=== PATIENT | female | born 1985 | race Hispanic/Latino ===

== ENCOUNTER 2017-04-18 04:20 | Emergency (ER) | payer OTHER ==
[2017-04-18 04:27] VITALS: RESP 16
[2017-04-18] MEDS ORDERED: Sodium Chloride 0.9% 1,000 ML IV STA (04:47)
--- NOTE | 2017-04-18 05:11 | ED PDOC ---
HPI: Abdomen Time Seen by Provider: 04/18/17 04:32 Chief Complaint (Nursing): Dizziness/Lightheaded Chief Complaint (Provider): Abdominal pain History Per: Patient History/Exam Limitations: no limitations Onset/Duration Of Symptoms: Days (04/18/17) Location Of Pain/Discomfort: Epigastric Associated Symptoms: Nausea, Vomiting (two episodesc), Diarrhea Additional Complaint(s): 32 y/o female with a past medical history of Yakov disease, hypothyroidism, and anxiety presents to the ED complaining of abdominal pain with associated symptoms of nausea, two episodes of vomiting and non-bloody diarrhea. Vomit was non-bilious and non-bloody. Reports of dizziness due to change in thyroid. PMD: Provider TBD Past Medical History Reviewed: Historical Data, Nursing Documentation, Vital Signs Vital Signs: Last Vital Signs Temp 97.9 F 04/18/17 04:25 Pulse 75 04/18/17 04:25 Resp 16 04/18/17 04:25 BP 135/95 H 04/18/17 04:25 Pulse Ox 97 04/18/17 05:27 - Medical History PMH: Anxiety, Hypothyroidism Denies: Seizures Other PMH: Yakov disease - Family History Family History: States: Unknown Family Hx - Social History Current smoker - smoking cessation education provided: No Alcohol: None Drugs: Denies - Home Medications Home Medications: Ambulatory Orders Medication Instructions Recorded Dextroamphetamine/Amphetamine 10 mg PO BID 04/07/15 [Adderall 10 mg Tablet] Escitalopram [Lexapro] 10 mg PO DAILY 04/07/15 Ethinyl Estradiol/Drospirenone 1 tab PO DAILY 04/07/15 [Lilian 3 mg-0.03 mg] Ondansetron ODT [Zofran ODT] 4 mg PO TID #21 odt 04/07/15 Bacitracin Ointment [Bacitracin] 1 applic TOP BID #1 tube 02/22/16 Naproxen [Naprosyn] 500 mg PO Q12 PRN #14 tablet 02/22/16 - Allergies Allergies/Adverse Reactions: Allergies Allergy/AdvReac Type Severity Reaction Status Date / Time No Known Allergies Allergy Verified 04/18/17 04:27 Review of Systems ROS Statement: Except As Marked, All Systems Reviewed And Found Negative Gastrointestinal: Positive for: Nausea, Vomiting (two episodes non-bilious and non-bloody), Abdominal Pain (epigastric), Diarrhea (non-bloody) Neurological: Positive for: Dizziness Physical Exam - Reviewed Nursing Documentation Reviewed: Yes Vital Signs Reviewed: Yes - Physical Exam Appears: Positive for: Well, Non-toxic, No Acute Distress Head Exam: Positive for: ATRAUMATIC, NORMAL INSPECTION, NORMOCEPHALIC Skin: Positive for: Normal Color, Warm, Dry Eye Exam: Positive for: EOMI, Normal appearance, PERRL ENT: Positive for: Normal ENT Inspection, Other (mucous membrane dry) Neck: Positive for: Normal, Painless ROM, Supple. Negative for: Decreased ROM, Limited ROM Cardiovascular/Chest: Positive for: Regular Rate, Rhythm. Negative for: Murmur Respiratory: Positive for: Normal Breath Sounds. Negative for: Decreased Breath Sounds, Accessory Muscle Use, Wheezing Gastrointestinal/Abdominal: Positive for: Bowel Sounds, Soft, Tenderness ( epigastric) Back: Positive for: Normal Inspection. Negative for: L CVA Tenderness, R CVA Tenderness Extremity: Positive for: Normal ROM. Negative for: Tenderness, Pedal Edema, Deformity Neurologic/Psych: Positive for: Alert, Oriented (x3), Gait - Laboratory Results Result Diagrams: 04/18/17 05:20 04/18/17 05:20 - ECG O2 Sat by Pulse Oximetry: 97 (RA) Pulse Ox Interpretation: Normal Medical Decision Making Medical Decision Making: Time: 04:46 Initial Impression: 32 y/o female with Abdominal pain, diarrhea, and vomiting Initial Plan: --EKG --Alcohol Serum --CMP --Lipase Stat --CBC --Ativan 2mg --Famotidine 20mg --Normale Saline 1000 mls/hr --Zofran 4mg --Urinalysis --Reevaluation Time: 07:00 Patient will be signed out to Dr. Gillespie pending CT and reevaluation. Documented by Kim Blackburn acting as a scribe for Tyshawn Wilcox MD. All medical record entries made by the Scribe were at my direction and personally dictated by me. I have reviewed the chart and agree that the record accurately reflects my personal performance of the history, physical exam, medical decision making, and the department course for this patient. I have also personally directed, reviewed, and agree with the discharge instructions and disposition. Disposition - Disposition Forms: [employer] (Telugu)
[2017-04-18 05:36] LABS: BASO # 0.1 K/uL (0.0-0.2); BASO % 1.5 % (0.0-2.0); EOS # 0.2 K/uL (0.0-0.7); EOS % 2.7 % (0.0-4.0); LYMPH # 2.1 K/uL (1.0-4.3); LYMPH % 25.9 % (20.0-40.0); MEAN CELL VOLUME 89.3 fl (81.0-99.0); MEAN CORPUSCULAR HEMOGLOBIN 30.2 pg (27.0-31.0); MEAN CORPUSCULAR HGB CONC 33.8 g/dL (33.0-37.0); MEAN PLATELET VOLUME 7.3 fl (7.2-11.7); MONO # 0.6 K/uL (0.0-0.8); MONO % 7.3 % (0.0-10.0); NEUT % 62.6 % (50.0-75.0); NRBC % 0.1 % (0.0-0.0); RBC 3.97 Mil/uL (3.80-5.20); RED CELL DISTRIBUTION WIDTH 13.3 % (11.5-14.5)
[2017-04-18 05:56] LABS: URINE BACTERIA RARE (<OCC); URINE BILIRUBIN NEGATIVE (NEGATIVE); URINE BLOOD MODERATE (NEGATIVE); URINE CLARITY CLEAR (Clear); URINE COLOR COLORLESS (YELLOW); URINE GLUCOSE (UA) NEG (Normal); URINE LEUKOCYTE ESTERASE NEG Leu/uL (Negative); URINE PROTEIN NEGATIVE (NEGATIVE); URINE UROBILINOGEN 0.2-1.0 mg/dL (0.2-1.0)
[2017-04-18] MEDS ORDERED: Sucralfate 1 gm/10 ml Oral Susp UD PO STA (06:38)
[2017-04-18 06:39] LABS: ALBUMIN 4.2 g/dL (3.5-5.0); ALT/SGPT 29 U/L (9-52); AST/SGOT 28 U/L (14-36); BLOOD UREA NITROGEN 12 mg/dl (7-17); CALCIUM 9.7 mg/dL (8.4-10.2); GFR AFRICAN-AMERICAN > 60; GFR NON-AFRICAN AMERICAN > 60; LIPASE 55 U/L (23-300)
[2017-04-18] MEDS ORDERED: Sucralfate 1 gm/10 ml Oral Susp UD ONE (06:42)
[2017-04-18] MEDS ORDERED: Sodium Chloride 0.9% 100 ML ONE (08:30)
[2017-04-18] MEDS ORDERED: Iohexol 300 100 ML IJ ONE (08:30)
--- NOTE | 2017-04-18 09:59 | CT ---
PROCEDURE: CT scan abdomen pelvis dated 04/18/17. HISTORY: Epigastric/right lower quadrant pain. COMPARISON: None. TECHNIQUE: Contiguous axial images of the abdomen and pelvis performed following oral and intravenous injection of approximately 95 cc Omnipaque 300 contrast material. Additional 2 dimensional sagittal and coronal reformats generated. Note that the examination is somewhat limited due to motion artifact particularly in the upper pelvis region. Radiation dose: Total exam DLP = 578.[address] exam was performed using one or more of the following dose reduction techniques: Automated exposure control, adjustment of the mA and/or kV according to patient size, and/or use of iterative reconstruction technique. FINDINGS: LOWER THORAX: Lung bases are clear. No infiltrate effusion or basilar pneumothorax. There is small hiatal hernia. Heart size within range of normal. No significant pericardial effusion. LIVER: The liver is upper limits of normal in size measuring nearly over 18 cm in CC dimension. No obvious hepatic mass or collection. Moderate diffuse fatty hepatic infiltration. The portal and splenic veins are opacified. GALLBLADDER AND BILE DUCTS: The gallbladder is physiologically distended. No evidence intraluminal gallbladder calculi. PANCREAS: The visualized pancreas appears unremarkable without mass collection or calcification. No significant pancreatic ductal dilatation. SPLEEN: The spleen exhibits normal size and attenuation pattern. ADRENALS: No adrenal lesions. KIDNEYS AND URETERS: Kidneys demonstrate symmetric nephrograms. No evidence of nephrolithiasis or hydronephrosis. No obvious renal masses or collections. BLADDER: Urinary bladder is incompletely distended which presumably in part accounts for thick-walled appearance. Possibility of the cystitis not excluded. Clinical correlation with urinalysis suggested. REPRODUCTIVE: Uterus and adnexal structures unremarkable. APPENDIX: Normal appearing appendix best seen on the axial image number [id number]. No periappendiceal inflammatory changes. BOWEL: Evaluation of the bowel is limited the due to the incomplete opacification. Stomach is incompletely distended which presumably accounts for thick-walled appearance. Gastritis not excluded. Questionable mild wall thickening of the terminal ileum which may be secondary to a combination of incomplete opacification and under distention as well as some peristalsis however possibility of a localized inflammatory process cannot be completely excluded. Clinical correlation recommended. No evidence of acute mechanical small bowel obstruction with oral contrast material extending into the colon to the level of the rectum. Stool and air seen throughout the large bowel. There is mild wall thickening of a short segment of the distal transverse colon which may in part be due to a combination of incomplete distention and peristalsis however the possibility of localized inflammatory process also cannot be completely excluded. PERITONEUM: No gross free intraperitoneal air. There are no free or loculated fluid collections. LYMPH NODES: No significant/bulky adenopathy VASCULATURE: The abdominal aorta and iliac arteries are unremarkable. BONES: The osseous structures are intact. N minor multilevel degenerative spondylosis of the lower thoracic and lumbar spine. OTHER FINDINGS: None. IMPRESSION: Peristalsis or slightly limited motion degraded study. Moderate diffuse fatty hepatic infiltration. There appears to be some wall thickening of the terminal which could be secondary to incomplete opacification under distension and some peristalsis however possibility of an inflammatory process not completely excluded. Clinical correlation recommended. Additionally, minor wall thickening of short segment of the distal transverse colon in part due to incomplete distention and possibly some peristalsis however the possibility of a localized inflammatory process involving this segment also cannot be completely excluded. . Clinical correlation recommended. Findings discussed with Dr. Gillespie at approximately 9:55 a.m. with written down and read back verification.
[2017-04-18 11:07] VITALS: BP 120/72; PULSE 77; TEMP 97.8; O2SAT 100
--- NOTE | 2017-04-18 11:17 | ED PDOC ---
- Laboratory Results Result Diagrams: 04/18/17 05:20 04/18/17 05:20 - ECG O2 Sat by Pulse Oximetry: 100 Medical Decision Making Medical Decision Making: received patient from Dr. Wilcox. Labs and CT reviewed. Patient not as dizziness but still has nausea. She zofran at home. Will give course of cipro/flagyl for colitis and advised GI/PCP followup. Disposition Doctor Will See Patient In The: Office Counseled Patient/Family Regarding: Diagnosis, Need For Followup, Rx Given - Clinical Impression Clinical Impression: Colitis, Dizzy spells - POA Present On Arrival: None - Disposition Referrals: Mirlande Carbajal MD [Staff Provider] - [facility] [place] [Outside] Disposition: Routine/Home Disposition Time: 11:00 Prescriptions: Ciprofloxacin HCl [Cipro] 500 mg PO BID #20 tab metroNIDAZOLE [Flagyl] 500 mg PO BID #20 tab Instructions: Vertigo (a Type of Dizziness) Forms: [facility] (Mauritian), [facility] ED School/Work Excuse
--- NOTE | 2017-04-18 13:13 | CARD ---
APPROVED REPORT EKG Measurement Heart [id number] <Conclusion> Normal sinus rhythm with sinus arrhythmia Normal ECG
== END 2017-04-18 11:26 | disposition home or self-care (01) ==
LOC: H.ER 04:20
DX: K52.9 Noninfective gastroenteritis and colitis, unspecified (principal); R42 Dizziness and giddiness; F41.9 Anxiety disorder, unspecified; E06.3 Autoimmune thyroiditis
CPT/HCPCS: 74177; 80053; 80320; 81003; 81025; 83690; 85025; 93005; 96374; 96375; 99285; J2405; J7040; Q9967

== ENCOUNTER 2017-04-19 03:19 | Emergency (ER) | payer OTHER ==
[2017-04-19 03:47] VITALS: BP 121/85; PULSE 88; RESP 16; TEMP 98.3; O2SAT 98
[2017-04-19] MEDS ORDERED: Sodium Chloride 0.9% 1,000 ML IV STA (04:25)
[2017-04-19 04:53] LABS: URINE BACTERIA RARE (<OCC); URINE BILIRUBIN NEGATIVE (NEGATIVE); URINE BLOOD SMALL (NEGATIVE); URINE CLARITY CLEAR (Clear); URINE COLOR COLORLESS (YELLOW); URINE GLUCOSE (UA) NEG (Normal); URINE LEUKOCYTE ESTERASE NEG Leu/uL (Negative); URINE PROTEIN NEGATIVE (NEGATIVE); URINE UROBILINOGEN 0.2-1.0 mg/dL (0.2-1.0)
[2017-04-19 05:25] LABS: ALBUMIN 4.2 g/dL (3.5-5.0); ALT/SGPT 24 U/L (9-52); AST/SGOT 30 U/L (14-36); BLOOD UREA NITROGEN 10 mg/dl (7-17); CALCIUM 9.1 mg/dL (8.4-10.2); GFR AFRICAN-AMERICAN > 60; GFR NON-AFRICAN AMERICAN > 60; LIPASE 53 U/L (23-300)
[2017-04-19 05:31] LABS: BASO % 0.6 % (0.0-2.0); EOS % 0.7 % (0.0-4.0); HEMOGLOBIN 11.7 g/dL (12.0-16.0); LYMPH # 1.1 K/uL (1.0-4.3); LYMPH % 17.5 % (20.0-40.0); MEAN CORPUSCULAR HEMOGLOBIN 30.2 pg (27.0-31.0); MEAN CORPUSCULAR HGB CONC 33.5 g/dL (33.0-37.0); MEAN PLATELET VOLUME 7.8 fl (7.2-11.7); MONO # 0.2 K/uL (0.0-0.8); MONO % 3.6 % (0.0-10.0); NEUT % 77.6 % (50.0-75.0); RBC 3.87 Mil/uL (3.80-5.20); RED CELL DISTRIBUTION WIDTH 13.5 % (11.5-14.5); WHITE BLOOD COUNT 6.5 K/uL (4.8-10.8)
--- NOTE | 2017-04-19 05:50 | ED PDOC ---
HPI: Abdomen Time Seen by Provider: 04/19/17 03:59 Chief Complaint (Nursing): Abdominal Pain Chief Complaint (Provider): Abdominal Pain History Per: Patient History/Exam Limitations: no limitations Additional Complaint(s): 32 y/o female presents to the ED for abdominal pain with associated nausea, vomiting and diarrhea. Patient states that she was seen in ED yesterday with similar symptoms and was diagnosed with swollen colon. Today she drank wine and pain returned. Reports that she vomited twice ( non-bilious non bloody) and had one lose stool. Denies any further medical complaints. PMD: Mirlande Carbajal MD Past Medical History Reviewed: Historical Data, Nursing Documentation, Vital Signs Vital Signs: Last Vital Signs Temp 98.3 F 04/19/17 03:43 Pulse 88 04/19/17 03:43 Resp 16 04/19/17 03:43 BP 121/85 04/19/17 03:43 Pulse Ox 98 04/19/17 05:53 - Medical History PMH: Anxiety, Hypothyroidism (hashimotos) Denies: Seizures - Surgical History Other surgeries: [place] teeth removed - Family History Family History: States: Unknown Family Hx - Social History Current smoker - smoking cessation education provided: No Alcohol: None Drugs: Denies - Home Medications Home Medications: Ambulatory Orders Medication Instructions Recorded Dextroamphetamine/Amphetamine 10 mg PO BID 04/07/15 [Adderall 10 mg Tablet] Escitalopram [Lexapro] 10 mg PO DAILY 04/07/15 Ethinyl Estradiol/Drospirenone 1 tab PO DAILY 04/07/15 [Lilian 3 mg-0.03 mg] Ondansetron ODT [Zofran ODT] 4 mg PO TID #21 odt 04/07/15 Bacitracin Ointment [Bacitracin] 1 applic TOP BID #1 tube 02/22/16 Naproxen [Naprosyn] 500 mg PO Q12 PRN #14 tablet 02/22/16 Ciprofloxacin HCl [Cipro] 500 mg PO BID #20 tab 04/18/17 metroNIDAZOLE [Flagyl] 500 mg PO BID #20 tab 04/18/17 Omeprazole 20 mg PO DAILY #30 capsule. 04/19/17 - Allergies Allergies/Adverse Reactions: Allergies Allergy/AdvReac Type Severity Reaction Status Date / Time No Known Allergies Allergy Verified 04/19/17 03:43 Review of Systems ROS Statement: Except As Marked, All Systems Reviewed And Found Negative (As per HPI, otherwise negative) Gastrointestinal: Positive for: Nausea, Vomiting, Abdominal Pain, Diarrhea Physical Exam - Reviewed Nursing Documentation Reviewed: Yes Vital Signs Reviewed: Yes - Physical Exam Appears: Positive for: Well, Non-toxic, No Acute Distress Head Exam: Positive for: ATRAUMATIC, NORMAL INSPECTION, NORMOCEPHALIC Skin: Positive for: Normal Color, Warm, Dry Eye Exam: Positive for: EOMI, Normal appearance, PERRL ENT: Positive for: Normal ENT Inspection Neck: Positive for: Normal, Painless ROM, Supple Cardiovascular/Chest: Positive for: Regular Rate, Rhythm. Negative for: Murmur Respiratory: Positive for: Normal Breath Sounds. Negative for: Accessory Muscle Use, Respiratory Distress Gastrointestinal/Abdominal: Positive for: Normal Exam, Bowel Sounds, Soft. Negative for: Tenderness Back: Positive for: Normal Inspection Extremity: Positive for: Normal ROM. Negative for: Deformity Neurologic/Psych: Positive for: Alert, Oriented (x3) - Laboratory Results Result Diagrams: 04/19/17 05:02 04/19/17 05:02 - ECG O2 Sat by Pulse Oximetry: 98 (RA) Pulse Ox Interpretation: Normal Medical Decision Making Medical Decision Making: Time: 04:25 Initial Impression: Alcohol gastritis Plan: Drug screen, urine Sodium chloride 1l IV Ondansetron 4mg IVP Pantoprazole 40mg IVP Reevalauation 650AM Patient reports feeling much better, advised to stop drinking heavily and to followup with GI. Return precautions discussed. Scribe Attestation: Documented by Swetha Urias acting as a scribe for Federico Ricks MD. MD We[employer] Attestation: All medical record entries made by the Scribe were at my direction and personally dictated by me. I have reviewed the chart and agree that the record accurately reflects my personal performance of the history, physical exam, medical decision making, and the department course for this patient. I have also personally directed, reviewed, and agree with the discharge instructions and disposition. Disposition - Clinical Impression Clinical Impression: Gastritis, Abdominal pain - Disposition Referrals: Erich Cabello MD [Medical Doctor] - Disposition: Routine/Home Disposition Time: 06:58 Condition: IMPROVED Prescriptions: Omeprazole 20 mg PO DAILY #30 capsule. Instructions: Gastritis (DC), Nausea and Vomiting, Adult Forms: [facility] (Georgian)
[2017-04-19 08:14] LABS: BARBITURATES, UR NEGATIVE (NEGATIVE); BENZODIAZEPINES, UR NEGATIVE (NEGATIVE); OPIATES, UR NEGATIVE (NEGATIVE); PHENCYCLIDINE, UR NEGATIVE (NEGATIVE)
== END 2017-04-19 07:24 | disposition home or self-care (01) ==
LOC: H.ER 03:19
DX: K52.9 Noninfective gastroenteritis and colitis, unspecified (principal); F41.9 Anxiety disorder, unspecified; E06.3 Autoimmune thyroiditis
CPT/HCPCS: 80053; 80320; 80324; 80345; 80346; 80349; 80353; 80358; 80361; 81003; 83690; 83992; 85025; 96374; 96375; 99282; C9113; J2405; J7040

== ENCOUNTER 2017-04-20 07:02 | Emergency (ER) | payer OTHER ==
[2017-04-20] MEDS ORDERED: Sodium Chloride 0.9% 1,000 ML IV STA (07:36)
--- NOTE | 2017-04-20 07:51 | ED PDOC ---
HPI: General Adult Time Seen by Provider: 04/20/17 07:06 Chief Complaint (Nursing): Dizziness/Lightheaded Chief Complaint (Provider): Dizziness/Lightheaded History Per: Patient History/Exam Limitations: no limitations Current Symptoms Are (Timing): Still Present Additional History Per: Prior Records Additional Complaint(s): Ms. Blanton is a 32 year old female who presents to the ED via EMS complaining of dizziness/nausea. This is patient's 3rd visit in 3 days. Patient feels anxious. Patient reports drinking alcohol right before she came to ED. Patient received synthroid prescription 2 days ago, but states she did not fill it. Patient is under the care of an [facility] [place] city for thyroid problems. PMD: Mirlande Carbajal Past Medical History Reviewed: Historical Data, Nursing Documentation, Vital Signs Vital Signs: Last Vital Signs Temp 98.6 F 04/20/17 07:06 Pulse 84 04/20/17 10:30 Resp 14 04/20/17 10:30 BP 134/75 04/20/17 10:30 Pulse Ox 96 04/20/17 15:09 - Medical History PMH: Anxiety, Hypothyroidism (hashimotos) Denies: Seizures - Family History Family History: States: Unknown Family Hx - Home Medications Home Medications: Ambulatory Orders Medication Instructions Recorded Dextroamphetamine/Amphetamine 10 mg PO BID 04/07/15 [Adderall 10 mg Tablet] Escitalopram [Lexapro] 10 mg PO DAILY 04/07/15 Ethinyl Estradiol/Drospirenone 1 tab PO DAILY 04/07/15 [Lilian 3 mg-0.03 mg] Ondansetron ODT [Zofran ODT] 4 mg PO TID #21 odt 04/07/15 Bacitracin Ointment [Bacitracin] 1 applic TOP BID #1 tube 02/22/16 Naproxen [Naprosyn] 500 mg PO Q12 PRN #14 tablet 02/22/16 Ciprofloxacin HCl [Cipro] 500 mg PO BID #20 tab 04/18/17 metroNIDAZOLE [Flagyl] 500 mg PO BID #20 tab 04/18/17 Omeprazole 20 mg PO DAILY #30 capsule. 04/19/17 Meclizine [Meclizine*] 25 mg PO Q6 PRN #20 tab 04/20/17 - Allergies Allergies/Adverse Reactions: Allergies Allergy/AdvReac Type Severity Reaction Status Date / Time No Known Allergies Allergy Verified 04/20/17 07:11 Review of Systems ROS Statement: Except As Marked, All Systems Reviewed And Found Negative Neurological: Positive for: Dizziness, Other (Nausea) Psych: Positive for: Anxiety Physical Exam - Reviewed Nursing Documentation Reviewed: Yes Vital Signs Reviewed: Yes - Physical Exam Appears: Positive for: Well, Non-toxic Head Exam: Positive for: ATRAUMATIC, NORMAL INSPECTION, NORMOCEPHALIC Skin: Positive for: Normal Color, Warm, Dry Eye Exam: Positive for: Normal appearance, EOMI, PERRL ENT: Positive for: Normal ENT Inspection Neck: Positive for: Normal Cardiovascular/Chest: Positive for: Regular Rate, Rhythm Respiratory: Positive for: Normal Breath Sounds. Negative for: Respiratory Distress Gastrointestinal/Abdominal: Positive for: Normal Exam Back: Positive for: Normal Inspection Extremity: Positive for: Normal ROM. Negative for: Deformity Neurologic/Psych: Positive for: Alert, Oriented (x 3). Negative for: Motor/ Sensory Deficits - Laboratory Results Result Diagrams: 04/20/17 08:10 04/20/17 08:10 Urine POC: Negative - ECG O2 Sat by Pulse Oximetry: 96 (RA) Pulse Ox Interpretation: Normal Medical Decision Making Medical Decision Making: Time: 07:36 Impression(s): Vertigo, Alcohol Intoxication Plan: - CT Head without Contrast - Alcohol Serum - CMP - T3 Stat - T4 Stat - TSH - ED Urine - CBC - Sodium Chloride 0.9 1,000 ml IV 1,000 mls/hr - Zofran Inj 4 mg IV STAT Time: 08:04 Informed by RN that patient is having an anxiety attack. Time: 08:39 - Xanax 0.25 mg PO STAT Alcohol, Quantitative 99 mg/dl [high] Time: 09:55 CT Head without Contrast FINDINGS: HEMORRHAGE: No intracranial hemorrhage. BRAIN: No mass effect or edema. No atrophy or chronic microvascular ischemic changes. VENTRICLES: Unremarkable. No hydrocephalus. CALVARIUM: Unremarkable. PARANASAL SINUSES: Unremarkable as visualized. No significant inflammatory changes. MASTOID AIR CELLS: Unremarkable as visualized. No inflammatory changes. OTHER FINDINGS: None. IMPRESSION: Normal CT of the Head. 14:[address] Zurita, plan to discharge. Scribe Attestation: Documented by He Coats, acting as a scribe for Aurelia Harrison MD Provider Scribe Attestation: All medical record entries made by the Scribe were at my direction and personally dictated by me. I have reviewed the chart and agree that the record accurately reflects my personal performance of the history, physical exam, medical decision making, and the department course for this patient. I have also personally directed, reviewed, and agree with the discharge instructions and disposition. Disposition - Clinical Impression Clinical Impression: Vertigo, Anxiety, Alcohol intoxication - Patient ED Disposition Is Patient to be Admitted: No - Disposition Referrals: Mirlande Carbajal MD [Family Provider] - Disposition: Routine/Home Disposition Time: 14:45 Condition: IMPROVED Prescriptions: Meclizine [Meclizine*] 25 mg PO Q6 PRN #20 tab PRN Reason: Dizziness Instructions: Vertigo (a Type of Dizziness), Alcohol Use - When Is Drinking a Problem?, Anxiety, Adult (DC) Forms: [employer] (French)
[2017-04-20 08:36] LABS: BASO # 0.1 K/uL (0.0-0.2); BASO % 0.9 % (0.0-2.0); EOS # 0.1 K/uL (0.0-0.7); EOS % 1.8 % (0.0-4.0); HEMOGLOBIN 11.5 g/dL (12.0-16.0); LYMPH # 2.4 K/uL (1.0-4.3); LYMPH % 31.4 % (20.0-40.0); MEAN CELL VOLUME 89.6 fl (81.0-99.0); MEAN CORPUSCULAR HEMOGLOBIN 29.9 pg (27.0-31.0); MEAN CORPUSCULAR HGB CONC 33.4 g/dL (33.0-37.0); MEAN PLATELET VOLUME 7.4 fl (7.2-11.7); MONO # 0.7 K/uL (0.0-0.8); MONO % 9.7 % (0.0-10.0); NEUT # 4.3 K/uL (1.8-7.0); NEUT % 56.2 % (50.0-75.0); NRBC % 0.1 % (0.0-0.0); RBC 3.83 Mil/uL (3.80-5.20); RED CELL DISTRIBUTION WIDTH 13.8 % (11.5-14.5); WHITE BLOOD COUNT 7.6 K/uL (4.8-10.8)
[2017-04-20 08:58] LABS: ALB/GLOB RATIO 1.1 (1.0-2.1); ALBUMIN 4.1 g/dL (3.5-5.0); ALT/SGPT 30 U/L (9-52); AST/SGOT 19 U/L (14-36); BLOOD UREA NITROGEN 12 mg/dl (7-17); CALCIUM 9.6 mg/dL (8.4-10.2); GFR AFRICAN-AMERICAN > 60; GFR NON-AFRICAN AMERICAN > 60
[2017-04-20 09:13] LABS: T4 12.7 ug/dl (5.5-11.0)
[2017-04-20 09:26] LABS: T3 1.72 nmol/L (1.49-2.60)
--- NOTE | 2017-04-20 09:56 | CT ---
PROCEDURE: CT HEAD WITHOUT CONTRAST. HISTORY: Vertigo COMPARISON: 04/07/2016 TECHNIQUE: Axial computed tomography images were obtained through the head/brain without intravenous contrast. Radiation dose: Total exam DLP = mGy-cm. This CT exam was performed using one or more of the following dose reduction techniques: Automated exposure control, adjustment of the mA and/or kV according to patient size, and/or use of iterative reconstruction technique. FINDINGS: HEMORRHAGE: No intracranial hemorrhage. BRAIN: No mass effect or edema. No atrophy or chronic microvascular ischemic changes. VENTRICLES: Unremarkable. No hydrocephalus. CALVARIUM: Unremarkable. PARANASAL SINUSES: Unremarkable as visualized. No significant inflammatory changes. MASTOID AIR CELLS: Unremarkable as visualized. No inflammatory changes. OTHER FINDINGS: None. IMPRESSION: Normal CT of the Head.
[2017-04-20 10:57] VITALS: RESP 14
[2017-04-20 13:58] LABS: INR 0.9 (0.9-1.2); PARTIAL THROMBOPLASTIN TIME 25.2 Seconds (25.6-37.1); PROTHROMBIN TIME 10.2 Seconds (9.8-13.1)
[2017-04-20 14:47] VITALS: O2SAT 96
[2017-04-20 15:39] VITALS: BP 128/79; PULSE 89; TEMP 98
--- NOTE | 2017-04-20 17:03 | CARD ---
APPROVED REPORT EKG Measurement Heart [id number] NV 94P51 [id number] <Conclusion> Sinus tachycardia with short NV Otherwise normal ECG
== END 2017-04-20 15:31 | disposition home or self-care (01) ==
LOC: H.ER 07:02
DX: R42 Dizziness and giddiness (principal); F10.129 Alcohol abuse with intoxication, unspecified; F41.9 Anxiety disorder, unspecified
CPT/HCPCS: 70450; 80053; 80320; 81025; 84436; 84443; 84480; 85025; 85378; 85610; 85730; 93005; 96374; 96375; 99284; J2405; J7040